=== PATIENT | female | born 1930 | race Caucasian/White ===

== ENCOUNTER 2018-05-28 18:43 | Emergency (ER) | payer MEDICARE ==
--- NOTE | 2018-05-28 19:14 | Emergency Department Record ---
History of Present Illness - General Chief Complaint: Cough Stated Complaint: COOUGH Time Seen by Provider: 05/28/18 19:05 Source: Patient Mode of Arrival: Ambulatory Limitations: No limitations - History of Present Illness Initial Comments: The patient is here due to a cough for 2 weeks. She denies any fever, CP, SOB, or sputum production. She does have a hx of COPD and does have a nebulizer at home. MD Complaint: Cough Onset/Timin -: Week(s) Severity: Mild Severity scale (1-10): 2 Consistency: Constant - Related Data Previous Rx's Medication Instructions Recorded Azithromycin [Zithromax] 250 mg PO ASDIR #6 tab 05/28/18 Allergies Allergy/AdvReac Type Severity Reaction Status Date / Time No Known Drug Allergies Allergy Verified 05/28/18 19:05 Travel Screening - Travel/Exposure Within Last 30 Days Have you traveled within the last 30 days?: No - Travel/Exposure Within Last Year Have you traveled outside the [place] in the last year?: No - Additonal Travel Details Have you been exposed to anyone with a communicable illness?: No - Travel Symptoms Symptom Screening: None Review of Systems Constitutional: Denies: Chills, Fever Eyes: Denies: Eye discharge ENT: Denies: Congestion Respiratory: Reports: Cough. Denies: Dyspnea Cardiovascular: Denies: Arrhythmia, Chest pain Past Medical History - SOCIAL HISTORY Smoking Status: Former smoker Alcohol Use: None Drug Use: None - RESPIRATORY Hx Respiratory Disorders: Yes Hx Asthma: Yes Hx COPD: Yes - CARDIOVASCULAR Hx Cardio Disorders: Yes Hx CHF: Yes Hx Hypertension: Yes Comment:: AAA - NEURO Hx Neuro Disorders: No - GI Hx GI Disorders: Yes Comment:: AAA - Hx Genitourinary Disorders: No - ENDOCRINE Hx Endocrine Disorders: Yes Hx Thyroid Disease: Yes - MUSCULOSKELETAL Hx Musculoskeletal Disorders: No - PSYCH Hx Psych Problems: No - HEMATOLOGY/ONCOLOGY Hx Hematology/Oncology Disorders: No Family Medical History Any Significant Family History?: No Physical Exam - General General Appearance: Alert, Oriented x3, Cooperative, No acute distress - Head Head exam: Atraumatic, Normocephalic, Normal inspection - Eye Eye exam: Normal appearance, PERRL - ENT Throat exam: Normal inspection. negative: Tonsillar erythema, Tonsillar exudate - Neck Neck exam: Normal inspection, Full ROM. negative: Tenderness - Respiratory Respiratory exam: Normal lung sounds bilaterally. negative: Respiratory distress - Cardiovascular Cardiovascular Exam: Regular rate, Normal rhythm, Normal heart sounds - GI/Abdominal GI/Abdominal exam: Soft, Normal bowel sounds. negative: Tenderness - Extremities Extremities exam: Normal inspection, Full ROM, Normal capillary refill. negative: Tenderness - Neurological Neurological exam: Alert, Normal gait. negative: Abnormal gait, Motor sensory deficit Course Vital Signs 05/28/18 05/28/18 19:02 19:05 Temperature 97.3 F L 97.3 F L Pulse Rate 94 H Pulse Rate [ 94 H Pulse Ox Probe] Respiratory 18 18 Rate Blood Pressure 166/85 Blood Pressure 166/85 [Left Arm] Pulse Ox 96 96 - Reevaluation(s) Reevaluation #1: I did explain to the patient that due to her temp and oxygen being normal I do not feel she needs CXR. We will place her on a Zpak and have her F/U with her PCP next week if not better. 05/28/18 19:19 Disposition Disposition: Discharge Clinical Impression: COPD exacerbation Disposition: Home, Self-Care Condition: (2) Stable Instructions: Cold Symptoms (ED) Additional Instructions: Please continue your nebulizer treatments and please take the Zpak as directed. Please see your doctor if not better in 3 days. Return to the ER for any worsening symptoms. Prescriptions: Azithromycin [Zithromax] 250 mg PO ASDIR #6 tab Forms: Patient Portal Access Time of Disposition: 19:21 Quality - Quality Measures Quality Measures: N/A - Blood Pressure Screening View Details: Yes Does Patient Have Any of the Following: No Blood Pressure Classification: Pre-Hypertensive BP Reading Systolic Measurement: 166 Diastolic Measurement: 85 Screening for High Blood Pressure: < Pre-Hypertensive BP, F/U Documented > [ [id number]] Pre-Hypertensive Follow-up Interventions: Referral to alternative/primary care provider.
== END 2018-05-28 19:42 | disposition home or self-care (01) ==
LOC: ER 18:43
DX: J44.1 Chronic obstructive pulmonary disease with (acute) exacerbation (principal); Z87.891 Personal history of nicotine dependence
CPT/HCPCS: 99282